=== PATIENT | female | born 1970 | race Two or more races ===

== ENCOUNTER 2018-08-17 07:50 | Outpatient (CLI) | payer OTHER | END 2018-08-17 08:41 | disposition home or self-care (01) | LOC: LAB 07:50 | DX: E67.3 Hypervitaminosis D (principal); Z12.11 Encounter for screening for malignant neoplasm of colon; E78.2 Mixed hyperlipidemia; E11.9 Type 2 diabetes mellitus without complications; M06.89 Other specified rheumatoid arthritis, multiple sites ==

== ENCOUNTER 2018-08-17 15:11 | Outpatient (CLI) | payer OTHER | END 2018-08-17 15:19 | disposition home or self-care (01) | LOC: MAMO-SONO 15:11 | DX: N60.11 Diffuse cystic mastopathy of right breast (principal); N60.12 Diffuse cystic mastopathy of left breast; Z12.31 Encounter for screening mammogram for malignant neoplasm of breast ==

== ENCOUNTER 2019-03-09 11:13 | Outpatient (CLI) | payer OTHER | END 2019-03-09 12:08 | disposition home or self-care (01) | LOC: RAD 11:13 | DX: M05.79 Rheumatoid arthritis with rheumatoid factor of multiple sites without organ or systems involvement (principal); M25.511 Pain in right shoulder ==